=== PATIENT | female | born 1995 ===

== ENCOUNTER 2017-10-22 02:54 | Emergency (ER) | payer BC ==
[~2017-10-22] VITALS: Ht 165.1 cm; Wt 56.0 kg
[2017-10-22 02:56] VITALS: BP 116/66; PULSE 82; RESP 16; TEMP 98.5; O2SAT 99
--- NOTE | 2017-10-22 05:33 | PD ---
HPI Chief Complaint: Rug Sizer Problem/Complaint Time Seen by Provider: 05:30 Travel History International Travel<30 days: No Contact w/Intl Traveler<30days: No Traveled to known affect area: No History of Present Illness HPI The patient is a 22 year old female who presents to the [facility] emergency department with a history of vaginal pain and itching that began yesterday. She has had a white vaginal discharge. She is sexually active. She is newly on an oral contraceptive for the last week. She denies any concerns about sexually transmitted infections. Her partner is not a new partner. On review of systems, she denies having any recent fevers, cough, congestion, neck pain, chest pain, shortness of breath, abdominal pain, vomiting, diarrhea, urinary symptoms, or neurologic symptoms. LMP: 10/11. [facility] Past Medical History Narrative Medical The patient's past medical history is reportedly none. Medical History: Denies Significant Hx Diminished Hearing: No Tetanus Vaccination: Unknown Influenza Vaccination: No ?: Not LMP: 10/11/17 Past Surgical History Narrative Surgical The patient's past surgical history is significant for ACL repair on the right. Surgical History: No Previous Surgery Social History Alcohol Use: Yes (OCC) Tobacco Use: No Substance Use: No Allergies-Medications (Allergen,Severity, Reaction): Coded Allergies: No Known Allergies (Unverified , 10/22/17) Reported Meds & Prescriptions Reported Meds & Active Scripts Active Diflucan (Fluconazole) 150 Mg Tab 150 Mg PO ONCE Narrative Medication oral contraceptive Review of Systems Except as stated in HPI: all other systems reviewed are Neg General / Constitutional: No: Fever Eyes: No: Visual changes HENT: No: Headaches Cardiovascular: No: Chest Pain or Discomfort Respiratory: No: Shortness of Breath Gastrointestinal: No: Abdominal Pain Genitourinary: Positive: Discharge, Other (vaginal itching), No: Dysuria Musculoskeletal: No: Pain Skin: No Rash Neurologic: No: Weakness Psychiatric: No: Depression Endocrine: No: Polydipsia Hematologic/Lymphatic: No: Easy Bruising Physical Exam Narrative General: The patient is a well-developed well-nourished female in no acute distress. Head and Neck exam: Head is normocephalic atraumatic. Eyes: Pupils are equal round and reactive to light. Nose: Midline septum with pink mucous membranes Mouth: Dentition unremarkable. Moist mucus membranes. Posterior oropharynx is not erythematous. No tonsillar hypertrophy. Uvula midline. Airway patent. Neck: No palpable lymphadenopathy. No nuchal rigidity. No thyromegaly. Cardiovascular: Regular rate and rhythm without murmurs, gallops, or rubs. Lungs: Clear to auscultation bilaterally. No wheezes, rhonchi, or rales. Abdomen: Soft, without tenderness to palpation in all 4 quadrants of the abdomen. No guarding, rebound, or rigidity. Normal bowel sounds are audible. Extremities: No clubbing, cyanosis, or edema. Back: No costovertebral angle tenderness to palpation. Neurologic Exam: Grossly nonfocal. Skin Exam: No rash noted. Intact skin that is warm and dry. Gynecologic exam: The patient was placed in the dorsal lithotomy position. Her external genitalia were examined. She had no evidence of rash or lesions. The speculum was placed into her vagina and the cervix was identified. She had a white clumpy discharge noted. No cervical friability. On Bimanual exam: she has no cervical motion tenderness. No adnexal tenderness or prominence noted on palpation. No uterine tenderness or enlargement noted on palpation. Data Data Last Documented VS Vital Signs Date Time Temp Pulse Resp B/P (MAP) Pulse Ox O2 Delivery O2 Flow Rate FiO2 10/22/17 02:56 98.5 82 16 116/66 (83) 99 Orders Orders Gc And Chlamydia Pcr (10/22/17 05:32) Wet Prep Profile (10/22/17 05:32) Urinalysis - C+S If Indicated (10/22/17 05:32) Ed Urine Pregnancytest Poc (10/22/17 05:32) Labs Laboratory Tests Test 10/22/17 05:35 10/22/17 06:05 Urine Color YELLOW Urine Turbidity CLOUDY Urine pH 6.0 Urine Specific [place] 1.035 Urine Protein 30 mg/dL Urine Glucose (UA) NEG mg/dL Urine Ketones NEG mg/dL Urine Occult Blood NEG Urine Nitrite NEG Urine Bilirubin NEG Urine Urobilinogen 2.0 MG/DL Urine Leukocyte Esterase TRACE Urine WBC 5 /hpf Urine Squamous Epithelial Cells 5 /hpf Urine Renal Epithelial Cells 4 /hpf Urine Amorphous Sediment MOD Urine Bacteria RARE /hpf Urine Mucus FEW /lpf Microscopic Urinalysis Comment CULT NOT INDICATED Clue Cells (Wet Prep) NONE SEEN Vaginal Trichomonas (Wet Prep) NONE SEEN Vaginal Yeast (Wet Prep) NONE SEEN MDM Medical Decision Making Medical Screen Exam Complete: Yes Emergency Medical Condition: Yes Medical Record Reviewed: Yes Differential Diagnosis Yeast vaginitis, versus trichomoniasis, versus gonorrhea, versus chlamydia, versus bacterial vaginosis Narrative Course During the course of the patients emergency department visit, the patients history, examination, and differential diagnosis were reviewed with the patient. The patient was placed on a cardiac tech with oximetry and frequent blood pressure monitoring. The patient had a urine sent for analysis, wet prep, GC and chlamydia sent for analysis. The patients laboratory studies were reviewed and remarkable for a wet prep that was negative. Urinalysis unremarkable. In spite of the wet prep being negative the patient's symptoms are most consistent with yeast infection that is likely partially treated with the Monistat that she used yesterday. The patient will be sent home with a prescription for Diflucan. The patient is resting comfortably and feels better, is alert and in no distress. The patients results and examination findings were discussed with the patient. The repeat examination is unremarkable and benign. The history, exam, diagnostic testing, and current condition do not suggest any significant pathology to warrant further testing, continued ED treatment, admission, or surgical evaluation at this point. The vital signs have been stable. The patient does not have uncontrollable pain, intractable vomiting, or other significant symptoms. The patient's condition is stable and appropriate for discharge. The patient will pursue further outpatient evaluation with a primary care physician or other designated or consulting physician as indicated in the discharge instructions. The patient expressed understanding and was agreeable with this plan. Diagnosis Primary Impression: Yeast vaginitis Referrals: [facility] Dept. 1 week Patient Instructions: General Instructions, Vulvovaginal Candidiasis (ED) Scripts Fluconazole (Diflucan) 150 Mg Tab 150 MG PO ONCE for Infection, #1 TAB 0 Refills Prov: Krista Valdez MD 10/22/17 Disposition: 01 DISCHARGE HOME Condition: Stable Krista Valdez MD Oct 22, 2017 05:33
[2017-10-22 06:04] LABS: BACTERIA, URINE RARE /hpf; BLOOD, URINE NEG (NEG); COMMENT (UR) CULT NOT INDICATED; CULTURE IF INDICATED CULT NOT INDICATED; GLUCOSE,URINE NEG (NEG); KETONE, URINE NEG (NEG); MUCUS URINE FEW /lpf (OCC); NITRITE,URINE NEG (NEG); RENAL EPITHELIAL CELLS 4 /hpf; SQUAMOUS EPITHELIAL CELL URINE 5 /hpf (0-5); URINE COLOR YELLOW (YELLW/STRAW)
[2017-10-22] MEDS ORDERED: DIFL150T PO (06:47)
[2017-10-22 07:30] VITALS: BP 112/62
[2017-10-22 12:03] LABS: CHLAMYDIA PCR NOT DETECTED (NOT DETECT); NEISSERIA PCR NOT DETECTED (NOT DETECT)
== END 2017-10-22 07:30 | disposition home or self-care (01) ==
LOC: NEPC 02:54
DX: N76.0 Acute vaginitis (principal); L29.9 Pruritus, unspecified
CPT/HCPCS: 81001; 84703; 87210; 87491; 87591; 99284